=== PATIENT | female | born 1995 | race Caucasian/White ===

== ENCOUNTER 2021-08-08 05:38 | Emergency (ER) | payer OTHER ==
[~2021-08-08] VITALS: Ht 165.1 cm; Wt 58.3 kg
[~2021-08-08 05:38] MED LIST: SERT25TA PO
[2021-08-08] MEDS ORDERED: LACTATED RINGERS 1,000 ML IV ONE (06:15)
[2021-08-08 06:40] VITALS: BP_SYST 110; BP_SYST 123; BP_DIAS 70; BP_DIAS 78; BP_DIAS 93
[2021-08-08 06:45] LABS: BASOPHILS % (AUTO) 1 % (0-10); EOSINOPHILS # (AUTO) 0.1 10^3/uL (0.0-0.3); EOSINOPHILS % (AUTO) 1 % (0-10); HEMATOCRIT 34 % (35-52); HEMOGLOBIN 11.3 g/dL (11.5-16.0); LYMPHOCYTES # (AUTO) 2.2 10^3/uL (1.0-4.0); LYMPHOCYTES % (AUTO) 36 % (12-44); MEAN CORPUSCULAR HEMOGLOBIN 27 pg (25-34); MEAN CORPUSCULAR HGB CONC 33 g/dL (32-36); MEAN CORPUSCULAR VOLUME 82 fL (80-99); MEAN PLATELET VOLUME 9.8 fL (9.0-12.2); MONOCYTES # (AUTO) 0.5 10^3/uL (0.0-1.0); MONOCYTES % (AUTO) 9 % (0-12); NEUTROPHILS # (AUTO) 3.4 10^3/uL (1.8-7.8); NEUTROPHILS % (AUTO) 54 % (42-75); PLATELET COUNT 245 10^3/uL (130-400); WHITE BLOOD COUNT 6.2 10^3/uL (4.3-11.0)
[2021-08-08 06:49] LABS: POTASSIUM 3.5 MMOL/L (3.6-5.0)
[2021-08-08 06:50] LABS: CALCIUM 8.9 MG/DL (8.5-10.1)
[2021-08-08 06:55] LABS: CREATININE SERUM 0.8 MG/DL (0.60-1.30)
[2021-08-08 06:57] LABS: MAGNESIUM 1.8 MG/DL (1.6-2.4)
[2021-08-08 07:17] LABS: TSH (THYROID ANALYZER) 7.27 UIU/ML (0.35-4.94)
[2021-08-08 07:24] LABS: BILIRUBIN,URINE NEGATIVE (NEGATIVE); CLARITY,URINE CLEAR; COLOR,URINE YELLOW; GLUCOSE, URINE (UA) NEGATIVE (NEGATIVE); KETONES,URINE NEGATIVE (NEGATIVE); LEUKOCYTE ESTERASE ,URINE 1+ (NEGATIVE); NITRITE,URINE NEGATIVE (NEGATIVE); PH,URINE 5.5 (5-9); PROTEIN,URINE NEGATIVE (NEGATIVE)
[2021-08-08 07:45] LABS: BACTERIA,URINE MODERATE /HPF; WBC,URINE 25-50 /HPF
[2021-08-08 07:49] LABS: FREE T4 (FREE THYROXINE) 0.89 NG/DL (0.70-1.48)
--- NOTE | 2021-08-08 07:49 | ED General ---
General Chief Complaint: General Problems/Pain Stated Complaint: HEART PALPITATIONS,SOA,DIZZY,LOSS OF VISION Nursing Triage Note: PT ARRIVAL TO ER WITH COMPLAINT OF CHEST POUNDING SINCE YESTERDAY, AND LIGHTHEADED/DIZZY THIS AM. PT DENIES CARDIAC HISTORY. PT APPEARS VERY ANXIOUS. PT DENIES OTHER COMPLAINTS. Source of Information: Patient Exam Limitations: No Limitations History of Present Illness Date Seen by Provider: Aug 08, 2021 Time Seen by Provider: 06:03 Initial Comments This anxious 25-year-old young lady presents to the emergency room with complaints of sensation of racing heart and elevated blood pressure. She reports blood pressures have been elevated in the 140/90 range for the past month. Last night she developed a sensation of racing heart and felt dizzy upon standing. She spent yesterday outside on a very hot day swimming. She took her prazosin as usual before bed. She reports her heart rate upon waking this morning was in the 1 35-140 range. She presently takes Cymbalta, prazosin, and BuSpar. Cymbalta and prazosin were started in May and BuSpar was started in June. She sees a behavioral health provider but does not have a primary care doctor. She is scheduled to establish with Dr. Tian for primary care. She was previously seen at the [facility] [place] until she graduated. Vital signs are unremarkable at this time. Patient seems very anxious and shows signs of emotional distress with her facial expressions and voice. Allergies and Home Medications Allergies Coded Allergies: Penicillins (Unverified Allergy, Unknown, 04/17/14) Patient Home Medication List Home Medication List Reviewed: Yes Sertraline Hcl (Zoloft) 25 Mg Tablet, 100 MG PO DAILY, (Reported) Entered as Reported by: ARMANDO SHERMAN on 04/17/14 3137 Review of Systems Review of Systems Constitutional: no symptoms reported EENTM: no symptoms reported Respiratory: no symptoms reported Cardiovascular: see HPI Gastrointestinal: no symptoms reported Genitourinary: no symptoms reported : No Musculoskeletal: no symptoms reported Skin: no symptoms reported Psychiatric/Neurological: See HPI Hematologic/Lymphatic: No Symptoms Reported Immunological/Allergic: no symptoms reported Past Geybzgd-Aqkeny-Gjixob Hx Patient Social History Tobacco Use?: Yes Tobacco type used: Cigars Smoking Status: Current Someday Smoker Use of E-Cig and/or Vaping dev: No Substance use?: No Alcohol Use?: Yes Alcohol type: Beer, Hard Liquor, Wine Alcohol Frequency: Couple times a week Pt feels they are or have been: No Immunizations Up To Date Influenza Vaccine Up-to-Date: Yes; Up-to-Date COVID19 Vaccine Sample Weaver: YISSEL Past Medical History Surgeries: Yes (Oral surgery) Respiratory: No Cardiac: No Neurological: No : No Reproductive Disorders: No Genitourinary: No Gastrointestinal: No Musculoskeletal: No Endocrine: No HEENT: No Cancer: No Psychosocial: Yes Eating Disorder, Anxiety, PTSD, Depression Integumentary: No Physical Exam Vital Signs Vital Signs - First Documented 08/08/21 06:36 Temp 36.1 Pulse 96 Resp 22 B/P (MAP) 134/88 (103) Pulse Ox 98 O2 Delivery Room Air Capillary Refill : Less Than 3 Seconds Height, Weight, BMI Height: 5'6" Weight: 120lbs. oz. 54.166683tx; 21.00 BMI Method: General Appearance: WD/WN, Anxious, Thin HEENT: PERRL/EOMI, Normal ENT Inspection, Other (Oropharynx somewhat dry) Neck: Normal Inspection; No JVD Respiratory: Lungs Clear, Normal Breath Sounds, No Accessory Muscle Use Cardiovascular: Regular Rate, Rhythm, No Edema, No Murmur Gastrointestinal: Soft; No Distended Extremity: Normal Inspection, No Pedal Edema Neurologic/Psychiatric: Alert, Oriented x3, No Motor/Sensory Deficits, pipe washer II- XII Norm as Tested, Other (Very anxious) Skin: Normal Color, Warm/Dry Progress/Results/Core Measures Suspected Sepsis SIRS Temperature: Pulse: 112 Respiratory Rate: 22 Laboratory Tests 08/08/21 06:31: White Blood Count 6.2 Blood Pressure 110 /70 Mean: 83 Laboratory Tests 08/08/21 06:31: Creatinine 0.80, Platelet Count 245 Results/Orders Lab Results Laboratory Tests Test 08/08/21 06:31 08/08/21 07:18 Range/Units White Blood Count 6.2 4.3-11.0 10^3/uL Red Blood Count 4.17 3.80-5.11 10^6/uL Hemoglobin 11.3 L 11.5-16.0 g/dL Hematocrit 34 L 35-52 % Mean Corpuscular Volume 82 80-99 fL Mean Corpuscular Hemoglobin 27 25-34 pg Mean Corpuscular Hemoglobin Concent 33 32-36 g/dL Red Cell Distribution Width 15.3 H 10.0-14.5 % Platelet Count 245 130-400 10^3/uL Mean Platelet Volume 9.8 9.0-12.2 fL Immature Granulocyte % (Auto) 0 % Neutrophils (%) (Auto) 54 42-75 % Lymphocytes (%) (Auto) 36 12-44 % Monocytes (%) (Auto) 9 0-12 % Eosinophils (%) (Auto) 1 0-10 % Basophils (%) (Auto) 1 0-10 % Neutrophils # (Auto) 3.4 1.8-7.8 10^3/uL Lymphocytes # (Auto) 2.2 1.0-4.0 10^3/uL Monocytes # (Auto) 0.5 0.0-1.0 10^3/uL Eosinophils # (Auto) 0.1 0.0-0.3 10^3/uL Basophils # (Auto) 0.0 0.0-0.1 10^3/uL Immature Granulocyte # (Auto) 0.0 0.0-0.1 10^3/uL Sodium Level 138 135-145 MMOL/L Potassium Level 3.5 L 3.6-5.0 MMOL/L Chloride Level 106 98-107 MMOL/L Carbon Dioxide Level 21 21-32 MMOL/L Anion Gap 11 5-14 MMOL/L Blood Urea Nitrogen 11 7-18 MG/DL Creatinine 0.80 0.60-1.30 MG/DL Estimat Glomerular Filtration Rate 104 BUN/Creatinine Ratio 14 Glucose Level 101 70-105 MG/DL Calcium Level 8.9 8.5-10.1 MG/DL Magnesium Level 1.8 1.6-2.4 MG/DL Free Thyroxine 0.89 0.70-1.48 NG/DL [facility] Testing 7.27 H 0.35-4.94 UIU/ML Serum Test, Qualitative NEGATIVE NEGATIVE Urine Color YELLOW Urine Clarity CLEAR Urine pH 5.5 5-9 Urine Specific Tangent >=1.030 1.016-1.022 Urine Protein NEGATIVE NEGATIVE Urine Glucose (UA) NEGATIVE NEGATIVE Urine Ketones NEGATIVE NEGATIVE Urine Nitrite NEGATIVE NEGATIVE Urine Bilirubin NEGATIVE NEGATIVE Urine Urobilinogen 0.2 < = 1.0 MG/DL Urine Leukocyte Esterase 1+ H NEGATIVE Urine RBC (Auto) NEGATIVE NEGATIVE Urine RBC NONE /HPF Urine WBC 25-50 H /HPF Urine Squamous Epithelial Cells 10-25 H /HPF Urine Crystals NONE /LPF Urine Bacteria MODERATE H /HPF Urine Casts NONE /LPF Urine Mucus MODERATE H /LPF Urine Culture Indicated YES My Orders Orders - DANA DON MD Ed Iv/Invasive Line Start (08/08/21 06:14) Lactated Ringers (Lr 1000 Ml Iv Solution (08/08/21 06:15) Basic Metabolic Panel (08/08/21 06:14) Cbc With Automated Diff (08/08/21 06:14) Hcg,Qualitative Serum (08/08/21 06:14) Magnesium (08/08/21 06:14) Thyroid Analyzer (08/08/21 06:14) Ua Culture If Indicated (08/08/21 06:14) Monitor-Rhythm Ecg Trace Only (08/08/21 06:14) Orthostatic Vital Signs (Adult (08/08/21 06:14) Free T4 (Free Thyroxine) (08/08/21 06:31) Urine Culture (08/08/21 07:18) Medications Given in ED Current Medications Medications Dose Ordered Sig/Arash Route Start Time Stop Time Status Last Admin Dose Admin Lactated Ringer's 1,000 ml @ 0 mls/hr Q0M ONCE IV 08/08/21 06:15 08/08/21 06:16 DC 08/08/21 06:34 999 MLS/HR Vital Signs/I&O 08/08/21 08/08/21 06:36 06:40 Temp 36.1 Pulse 96 93 97 112 Resp 22 B/P (MAP) 134/88 (103) 123/93 (103) 123/78 (93) 110/70 (83) Pulse Ox 98 O2 Delivery Room Air Capillary Refill : Less Than 3 Seconds Blood Pressure Mean: 83 Progress Note : Time: 08:05 Progress Note Urinary tract infection was identified in urinalysis. Antibiotic therapy is being prescribed. No cardiac abnormalities were identified. Patient did have some mild hypertension on a few blood pressure measurements. Patient did have an elevated TSH but free T4 was unremarkable. I recommended the patient have this checked again in a few months by her primary care provider. Some of her symptoms may be related to medication adverse effect and I have recommended she follow-up with her behavioral health provider to discuss this possibility. Patient was given reassurance about her findings today. Her anxiety improved much after her work-up was explained. ECG Initial ECG Impression Date: Aug 08, 2021 Initial ECG Impression Time: 05:55 Initial ECG Rate: 94 Initial ECG Rhythm: Normal Sinus Initial ECG Intervals: Normal Initial ECG Impression: Normal Comment Normal sinus rhythm with no ST elevation or depression. No abnormal intervals or axis deviation. Departure Impression Primary Impression: Palpitations Additional Impressions: Dizziness Anxiety Urinary tract infection Qualified Codes: N39.0 - Urinary tract infection, site not specified Elevated TSH Disposition: HOME, SELF-CARE Condition: Improved Departure-Patient Inst. Referrals: NO,LOCAL PHYSICIAN (PCP/Family) Primary Care Physician Patient Instructions: Urinary Tract Infection, Adult ED Add. Discharge Instructions: Please review these discharge instructions carefully and bring them with you to your follow-up appointment with your behavioral health provider and to your appointment with your new primary care provider. Some possible causes of the symptoms you are experiencing today could be hydration status, bladder infection, or adverse effects from your medications. Drink plenty of clear liquids to stay well-hydrated and eat a well-balanced diet. Follow-up with your behavioral health provider and review your medications. Some of your symptoms such as dizziness could be related to adverse effects from her medications. If the symptoms do not correct with treatment of your bladder infection and hydration, you and your behavioral health provider may wish to alter some of your medications to eliminate adverse effects. Complete your antibiotic for urinary tract infection as prescribed. Please note this medication may turn your urine a reddish or oranges color which is normal. Your urine is being cultured. Please check on culture results on Monday or with your doctor or by contacting the ER. This will help ensure you are taking an antibiotic appropriate for the type of bacteria causing your infection. Your thyroid-stimulating hormone (TSH) was a little bit high. However, the free T4 hormone was normal. Please discuss this with your primary care provider and perhaps have this checked again in a few months to ensure stability. Return to the emergency room if you have worsening symptoms despite following these instructions. All discharge instructions reviewed with patient and/or family. Voiced understanding. Scripts Nitrofurantoin Monohyd/M-Cryst (Macrobid 100 mg Capsule) 100 Mg Capsule 1 TAB PO BID, #14 CAP Prov: DANA DON MD 08/08/21 Work/School Note: Work Release Form Date Seen in the Emergency Department: Aug 08, 2021 Return to Work: Aug 09, 2021 Restrictions: No Restrictions DANA DON MD Aug 08, 2021 07:49
[2021-08-08] MEDS ORDERED: NITR-65 PO (08:13)
[2021-08-08 08:20] VITALS: BP 123/78
== END 2021-08-08 08:20 | disposition home or self-care (01) ==
LOC: EDUNIT# 05:38 → ER 05:41
DX: F41.9 Anxiety disorder, unspecified (principal); N39.0 Urinary tract infection, site not specified; R42 Dizziness and giddiness; R94.6 Abnormal results of thyroid function studies; I10 Essential (primary) hypertension; F17.290 Nicotine dependence, other tobacco product, uncomplicated
CPT/HCPCS: 36415; 80048; 81000; 83735; 84439; 84443; 84703; 85025; 87088; 93005; 93041